=== PATIENT | male | born 1995 | race Two or more races ===

== ENCOUNTER 2020-06-18 17:19 | Emergency (ER) | payer SELFPAY ==
[~2020-06-18] VITALS: Ht 167.6 cm; Wt 63.5 kg
[2020-06-18] MEDS ORDERED: SODIUM CHLORIDE 0.9% 1,000 ML IVB ONE (17:45)
[2020-06-18 17:46] VITALS: BP 137/97
== END 2020-06-18 18:11 | disposition left against medical advice (07) ==
LOC: ER 17:19
DX: T65.91XA Toxic effect of unspecified substance, accidental (unintentional), initial encounter (principal); Z53.21 Procedure and treatment not carried out due to patient leaving prior to being seen by health care provider; X58.XXXA Exposure to other specified factors, initial encounter